=== PATIENT | female | born 1955 | race Caucasian/White ===

== ENCOUNTER 2020-07-18 08:00 | Day surgery (SDC) | payer OTHER ==
[~2020-07-18 08:00] MED LIST: ANTIVERT25 M1 PO; BUSPIRONE HCL10 MG PO; IBUPROFEN800 MG PO; LIPOFLAVOVIT CA1 TAB PO; MEDROLPACK PO; NEURONTIN PO; SEPTRA DS TABLE1 TAB PO; ZANTAC150 MG PO; ZOFRAN4 MG SL
[2020-07-18] MEDS ORDERED: Tylenol #3 PO (13:44)
[2020-07-18] MEDS ORDERED: MORGIDOX100 MG PO (13:44)
== END 2020-07-18 19:50 | disposition home or self-care (01) ==
LOC: CIR.AMB 08:00
PROVIDERS: ATTEND Obstetrics & Gynecology
DX: D25.0 Submucous leiomyoma of uterus (principal); N84.0 Polyp of corpus uteri; Z20.828 Contact with and (suspected) exposure to other viral communicable diseases

== ENCOUNTER 2020-09-12 16:17 | Inpatient (IN) | payer OTHER ==
[~2020-09-12] VITALS: Ht 157.5 cm; Wt 54.4 kg
[~2020-09-12 16:17] MED LIST changes: +MORGIDOX100 MG PO; +Tylenol #3 PO
== END 2020-09-20 11:07 | disposition home or self-care (01) | DRG 741 ==
LOC: O/R 09-19 06:57 → OB/GYN 09-19 07:00
PROVIDERS: ADMIT Obstetrics & Gynecology Gynecologic Oncology; ATTEND Obstetrics & Gynecology Gynecologic Oncology
PROC: 0UT2FZZ Resection of Bilateral Ovaries, Via Natural or Artificial Opening With Percutaneous Endoscopic Assistance (ICD-10-PCS; 2020-09-19)
PROC: 0UT7FZZ Resection of Bilateral Fallopian Tubes, Via Natural or Artificial Opening With Percutaneous Endoscopic Assistance (ICD-10-PCS; 2020-09-19)
PROC: 07BC4ZX Excision of Pelvis Lymphatic, Percutaneous Endoscopic Approach, Diagnostic (ICD-10-PCS; 2020-09-19)
PROC: 0UT9FZZ Resection of Uterus, Via Natural or Artificial Opening With Percutaneous Endoscopic Assistance (ICD-10-PCS; principal; 2020-09-19 07:00)
DX: C54.1 Malignant neoplasm of endometrium (principal); N83.8 Other noninflammatory disorders of ovary, fallopian tube and broad ligament